=== PATIENT | female | born 1980 | race Caucasian/White ===

== ENCOUNTER → 2017-03-14 | Outpatient (CLI) | payer BC ==
[2017-03-14 10:50] LABS: PROGESTERONE 39.9 NG/ML
[2017-03-14 10:51] LABS: ESTRADIOL 1034.9 PG/ML
== END ==
LOC: M LAB 09:35
PROVIDERS: ATTEND Obstetrics & Gynecology Reproductive Endocrinology
DX: N97.9 Female infertility, unspecified (principal)